=== PATIENT | female | born 1950 | race Caucasian/White ===

== ENCOUNTER 2019-10-22 23:17 | Observation (INO) | payer OTHER ==
--- NOTE | 2019-10-22 23:19 | PDOC ---
History of Present Illness - General Chief Complaint: Chest Pain Stated Complaint: CHEST PAIN Time Seen by Provider: 10/22/19 23:18 History Source: Patient Exam Limitations: No Limitations - History of Present Illness Initial Comments: 10/22/19 23:26 CHest pain and SOB began prior to arrival. Pt took 4 asa and she took a neb treatment, She feels better She is anxious. Past History - Travel Traveled outside of the country in the last 30 days: No - Past Medical History Allergies/Adverse Reactions: Allergies Allergy/AdvReac Type Severity Reaction Status Date / Time MARILEE Inhibitors Allergy Verified 10/22/19 23:20 tetracycline Allergy Verified 10/22/19 23:20 Home Medications: Ambulatory Orders Albuterol Sulfate Inhaler - [Ventolin Hfa Inhaler -] 1 - 2 inh PO QID 10/22/19 Amlodipine Besylate 10 mg PO DAILY 10/22/19 Atenolol [Tenormin] 25 mg PO DAILY 10/22/19 Cilostazol 100 mg PO BID 10/22/19 Furosemide [Lasix] 20 mg PO DAILY 10/22/19 Spironolactone 25 mg PO DAILY 10/22/19 HTN: Yes Hypercholesterolemia: Yes Review of Systems - Review of Systems Able to Perform ROS?: No Is the patient limited Japanese proficient: No Constitutional: Yes: Loss of Appetite HEENTM: No: Symptoms Reported, See HPI, Eye Pain, Blurred Vision, Tearing, Recent change in vision, Double Vision, Cataracts, Ear Pain, Ocular Prothesis, Ear Discharge, Nose Pain, Nose Congestion, Tinnitus, Nose Bleeding, Hearing Loss , Throat Pain, Throat Swelling, Mouth Pain, Dental Problems, Difficulty Swallowing, Mouth Swelling, Other Respiratory: Yes: Shortness of Breath. No: Symptoms reported, See HPI, Cough, Orthopnea, SOB with Exertion, SOB at Rest, Stridor, Wheezing, Productive cough, Hemoptysis, Other Cardiac (ROS): Yes: Chest Pain. No: Symptoms Reported, See HPI, Edema, Irregular Heart Rate, Lightheadedness, Palpitations, Syncope, Chest Tightness, Other ABD/GI: No: Symptoms Reported, See HPI, Abdominal Distended, Abd. Pain w/ defecation, Blood Streaked Bowels, Constipated, Diarrhea, Difficulty Swallowing , Nausea, Poor Appetite, Poor Fluid Intake, Rectal Bleeding, Vomiting, Indigestion, Abdominal cramping, Tarry Stools, Other Musculoskeletal: No: Symptoms Reported, See HPI, Back Pain, Gout, Joint Pain, Joint Swelling, Muscle Pain, Muscle Weakness, Neck Pain, Joint Stiffness, Other Integumentary: No: Symptoms Reported, See HPI, Bruising, Change in Color, Change in Hair/Nails, Dryness, Erythema, Flushing, Lesions, Lumps, Pallor, Pruritus, Rash, Sweating, Other Neurological: No: Symptoms reported, See HPI, Headache, Numbness, Paresthesia, Pre-Existing Deficit, Seizure, Tingling, Tremors, Weakness, Unsteady Gait, Ataxia, Dizziness, Other *Physical Exam - Physical Exam General Appearance: Yes: Nourished, Appropriately Dressed, Mild Distress HEENT: positive: EOMI, REINA, Normal ENT Inspection, Normal Voice, Symmetrical, TMs Normal, Pharynx Normal Neck: positive: Tender, Normal Thyroid, Supple Respiratory/Chest: positive: Lungs Clear, Normal Breath Sounds. negative: Respiratory Distress Cardiovascular: positive: Regular Rhythm, Regular Rate, S1, S2 Gastrointestinal/Abdominal: positive: Normal Bowel Sounds, Flat, Soft Musculoskeletal: positive: Normal Inspection. negative: CVA Tenderness Extremity: positive: Normal Capillary Refill, Normal Inspection, Normal Range of Motion Integumentary: positive: Normal Color, Dry, Warm, Cold Neurologic: positive: instructor pilot II-XII NML intact, Fully Oriented, Alert, Normal Mood/ Affect, Normal Response, Motor Strength 5/5 Heart Score/ECG Review - History History: Slightly suspicious - Electrocardiogram EKG: Normal - Age Age: >/= 65 - Risk Factors Risk Factors Heart Score: Yes Hx Hypercholesterolemia, Yes Hx Hypertension, Yes Hx Obesity Based on the list above the patient has:: >/=3 risk factors or Hx atherosclerotic disease - Troponin Troponin: </= normal limit - Score Heart Score - Total: 4 - ECG Intrepretation Rhythm: Regular Rhythm Comment:: 10/23/19 00:01 ?AFIB? I question some of the P waves on the EKG - [place]: Normal - ST and T Early Repolarization: No Non Specific ST-T Wave changes: No Flattened T Waves: No Prolonged Q-T Interval: No - ECG Impressions Normal ECG: Yes Non-specific ST Elevation: No Ischemic Changes: No Bradycardia: No Torsades ana Pointes: No WPW: No ED Treatment Course - LABORATORY CBC & Chemistry Diagram: 10/22/19 23:25 10/22/19 23:25 - RADIOLOGY Radiology Studies Ordered: Category Date Time Status CHEST PA & LAT [RAD] Stat Radiology 10/22/19 23:18 Ordered Medical Decision Making - Medical Decision Making 10/22/19 23:58 Pt is calmer in the ER and her BP came down to 129/62 CXR normal; increased markings in the right hilar area Pt has normal labs and card enzymes normal exam No pitting edema She will be admitted for CO and SOB 10/23/19 00:00 BUN/Cr prerenal picture; other labs normal Pt will be admitted to tele obs. 10/23/19 01:31 BNP 1071; likely early CHF Pt admitted to the hospitalist team Discharge - Discharge Information Problems reviewed: Yes Clinical Impression/Diagnosis: Chest pain, Dyspnea Condition: Stable - Admission Yes - Follow up/Referral - Patient Discharge Instructions - Post Discharge Activity
[2019-10-22 23:40] LABS: INR 1.05 (0.82-1.09); PROTHROMBIN TIME (PATIENT) 11.7 SEC (10.2-13.0)
[2019-10-22 23:42] LABS: BASO % 0.7 % (0-2.0); EOS % 4.6 % (0-4.5); HEMATOCRIT 42.4 % (32.4-45.2); HEMOGLOBIN 14.1 GM/dl (10.7-15.3); LYMPH % 31.6 % (8-40); MCH 29.3 pg (25.7-33.7); MCHC 33.3 g/dl (32.0-36.0); MEAN PLT VOLUME 8.2 fl (7.5-11.1); MONO % 11.8 % (3.8-10.2); NEUT % 51.3 % (42.8-82.8); PLATELET COUNT 329 K/MM3 (134-434); RBC 4.82 M/mm3 (3.60-5.2); RDW 13.2 % (11.6-15.6); WHITE BLOOD COUNT 6.7 K/mm3 (4.0-10.8)
[2019-10-22 23:45] LABS: ALBUMIN 4.3 g/dl (3.4-5.0); BILIRUBIN,TOTAL 0.4 mg/dl (0.2-1); CALCIUM 9.4 mg/dl (8.5-10); CREATININE 0.9 mg/dl (0.55-1.3); POTASSIUM 3.5 mmol/L (3.5-5.1); TOT PROT 7.3 g/dl (6.4-8.2)
[2019-10-23 01:42] VITALS: BMI 31.5
[2019-10-23] MEDS ORDERED: POTASSIUM CHLORIDE TABS 20 MEQ TABLET.ER (FP) PO ONE (03:01)
[2019-10-23] MEDS ORDERED: ASPIRIN 325 MG TABLET PO ONE (03:23)
[2019-10-23 05:09] LABS: MAGNESIUM 2.1 mg/dL (1.8-2.4); PHOSPHOROUS 3.7 mg/dL (2.5-4.9)
[2019-10-23] MEDS ORDERED: HEPARIN NA (PORCINE) 5,000 UNITS/ML 1ML VIAL SQ SCH (06:00)
--- NOTE | 2019-10-23 09:42 | HP ---
Admitting History and Physical - Primary Care Physician PCP: Anish Montelongo - Admission Chief Complaint: Chest Pain, Shortness of Breath History of Present Illness: 69 year old female with pmh significant for HTN, COPD, HLD, CAD, s/p 4 stents ( 1 in kidney, 1 in the heart, 2 in illiac arteries). Presented to the ER with complaints of chest pain and shortness of breath. Patient states she was at her daughter's house who lives 5 min from [facility], and she started feeling SOB and felt a burning and aching pain in her chest. She used her rescue inhaler with no relief. PT states became nervous and took 4 ASA, and her daughter brought her to the ER. Patient is under the care of Chief Information Security Officer, Dr. Campos Bolivar. History Source: Patient Limitations to Obtaining History: No Limitations - Past Medical History Cardiovascular: Yes: HTN, Hyperlipdemia, [place] Pulmonary: Yes: COPD ...: No - Past Surgical History Past Surgical History: Yes: Cholecystectomy, Hysterectomy, Stent (1 heart stent ; 1 kidney stent, 2 illiac stents) Additional Past Surgical History: Left total knee replacement - Smoking History Smoking history: Former smoker Have you smoked in the past 12 months: No If you are a former smoker, when did you quit?: 17 years ago - Alcohol/Substance Use Hx Alcohol Use: No History of Substance Use: reports: None - Social History Usual Living Arrangement: Yes: Alone Occupation: Retired [place] History of Recent Travel: No Home Medications - Allergies Allergies/Adverse Reactions: Allergies Allergy/AdvReac Type Severity Reaction Status Date / Time MARILEE Inhibitors Allergy Mouth Edema Verified 10/23/19 09:41 Penicillins Allergy Rash Verified 10/23/19 09:41 tetracycline Allergy Verified 10/22/19 23:20 - Home Medications Home Medications: Ambulatory Orders Albuterol Sulfate Inhaler - [Ventolin HFA Inhaler -] 1 - 2 inh PO QID 10/22/19 Amlodipine Besylate 10 mg PO HS 10/22/19 Atenolol [Tenormin] 25 mg PO HS 10/22/19 Cilostazol 100 mg PO BID 10/22/19 Atorvastatin Calcium [Lipitor] 20 mg PO HS 10/23/19 Spironolact/Hydrochlorothiazid [Aldactazide 25-25 Tablet] 1 each PO HS 10/23/19 Umeclidinium [place] [Incruse Ellipta] 62.5 mcg IH BID 10/23/19 Family Medical History Family Hx Cardiac Disorders: Mother, Father Family Hx Diabetes: Father, Brother Review of Systems - Review of Systems Constitutional: reports: No Symptoms Eyes: reports: No Symptoms HENT: reports: No Symptoms Neck: reports: No Symptoms Cardiovascular: reports: No Symptoms Respiratory: reports: Cough (Occasionally will have a cough in the AM, which is normal for her), Other (Denies any shortness of breath) Gastrointestinal: reports: No Symptoms Genitourinary: reports: No Symptoms Musculoskeletal: reports: No Symptoms, Joint Pain Integumentary: reports: No Symptoms Neurological: reports: No Symptoms Endocrine: reports: No Symptoms Hematology/Lymphatic: reports: No Symptoms Psychiatric: reports: No Symptoms Physical Examination Vital Signs: Vital Signs Temperature 98.8 F 10/23/19 04:11 Pulse Rate 69 10/23/19 04:11 Respiratory Rate 18 10/23/19 04:11 Blood Pressure 145/59 L 10/23/19 04:11 O2 Sat by Pulse Oximetry (%) 94 L 10/23/19 04:11 Labs: CBC, BMP 10/22/19 23:25 10/22/19 23:25 Imaging - Results Chest X-ray: Report Reviewed EKG: Report Reviewed (ECHO- Reviewed by Chief Information Security Officer) Assessment/Plan 69 year old female with pmh significant for HTN, COPD, HLD, CAD, s/p 4 stents ( 1 in kidney, 1 in the heart, 2 in illiac arteries). Presented to the ER with complaints of chest pain and shortness of breath. (1) Chest pain EKG: sinus, PVCs, lateral TWI tele: sinus, PVCs CXR: no congestion echo 09/2019 nl LV/RV function, tr MR, tr TR - trop indeterminate range, flat trend <0.03, 0.06, 0.06 -Cardiology consulted- Dr. Susan Garcia - EKG with lateral TWI with no prior for comparison - echo unremarkable (2) Hypertension Assessment/Plan: Continue HM dose Atenolol Code(s): I10 - ESSENTIAL (PRIMARY) HYPERTENSION (3) CAD (coronary artery disease) - cont aspirin, statin, bb, cilostazol Code(s): I25.10 - ATHSCL HEART DISEASE OF [place] CORONARY ARTERY W/O ANG PCTRS (4) COPD (chronic obstructive pulmonary disease) with emphysema -Incuse Ellipta -Ventolin Code(s): J43.9 - EMPHYSEMA, UNSPECIFIED (5) Dyspnea -2L [place] Code(s): R06.00 - DYSPNEA, UNSPECIFIED Visit type - Emergency Visit Emergency Visit: Yes ED Registration Date: 10/23/19 Care time: The patient presented to the Emergency Department on the above date and was hospitalized for further evaluation of their emergent condition. - New Patient This patient is new to me today: Yes Date on this admission: 10/23/19 - Critical Care Critical Care patient: No
[2019-10-23] MEDS ORDERED: FUROSEMIDE 20 MG TABLET (FP) PO SCH (10:00)
[2019-10-23] MEDS ORDERED: ASPIRIN COATED 81 MG TABLET.EC PO SCH ×2 (10:00→21:00)
[2019-10-23] MEDS ORDERED: ATENOLOL 25 MG TABLET (FP) PO SCH ×4 (10:00→21:00)
[2019-10-23] MEDS ORDERED: FUROSEMIDE 40 MG/4 ML INJECTABLE VIAL IVPUSH SCH (10:00)
--- NOTE | 2019-10-23 10:30 | EKG ---
Test Reason : Blood Pressure : / mmHG Vent. Rate : 088 BPM Atrial Rate : 088 BPM P-R Int : 140 ms QRS Dur : 096 ms QT Int : 412 ms P-R-T Axes : 016 -18 114 degrees QTc Int : 498 ms SINUS RHYTHM WITH OCCASIONAL PREMATURE VENTRICULAR COMPLEXES ABNORMAL ECG NO PREVIOUS ECGS AVAILABLE Confirmed by MUMTAZ HUYNH, ROSA ([id number]) on 10/23/2019 10:30:41 AM Referred By: MD AGUILAR Confirmed By:ROSA PANDYA MD
[2019-10-23] MEDS: SPIRONOLACTONE 25 MG TABLET (FP) PO SCH (10:53)
[2019-10-23] MEDS: amLODIPine BESYLATE 10 MG TABLET (FP) PO SCH (10:53)
[2019-10-23] MEDS ORDERED: SPIRONOLACTONE 25 MG TABLET (FP) PO SCH ×2 (11:15→11:59)
[2019-10-23] MEDS ORDERED: amLODIPine BESYLATE 10 MG TABLET (FP) PO SCH ×2 (11:15→11:59)
--- NOTE | 2019-10-23 11:34 | ECHO ---
Name: SELENA, KHLOE Exam:Adult Echocardiogram Study Date: 10/23/2019 08:26 AM Age: 69 yrs Reason For Study: SOB Height: 63 in Weight: 172 lb BSA: 1.8 m2 MMode/2D Measurements & Calculations IVSd: 1.3 cm Ao root diam: 2.5 cm LVIDd: 4.5 cm LA dimension: 3.4 cm LVIDs: 2.9 cm LVPWd: 0.84 cm EDV(Teich): 90.2 ml LVOT diam: 2.0 cm ESV(Teich): 31.9 ml Doppler Measurements & Calculations MV E max ninfa: 94.2 cm/sec MV A max ninfa: 90.6 cm/sec MV dec slope: 554.9 cm/sec2 MV E/A: 1.0 Ao V2 max: 134.8 cm/sec LV V1 max P.2 mmHg Ao max P.3 mmHg LV V1 max: 74.4 cm/sec NOAH(V,D): 1.7 cm2 MR max ninfa: 371.9 cm/sec TR max ninfa: 206.7 cm/sec MR max P.3 mmHg TR max P.2 mmHg PA V2 max: 87.7 cm/sec PI end-d ninfa: 115.1 cm/sec PA max P.1 mmHg Procedure A complete two-dimensional transthoracic echocardiogram was performed (2D, M-mode, Doppler and color flow Doppler). Left Ventricle The left ventricular size, thickness and function are normal. The left ventricular ejection fraction is normal. Ejection Fraction = 55-60%. The left ventricular wall motion is normal. Right Ventricle The right ventricle is normal in size and function. Atria Normal left and right atrial size and function. Mitral Valve There is trace mitral regurgitation. Tricuspid Valve There is trace tricuspid regurgitation. There was insufficient TR detected to calculate RV systolic p ressure. Aortic Valve The aortic valve is trileaflet. No hemodynamically significant valvular aortic stenosis. No aortic regurgitation is present. Pulmonic Valve Trace pulmonic valvular regurgitation. Great Vessels The aortic root is normal size. Pericardium/Pleura There is no pericardial effusion. Interpretation Summary The left ventricular size, thickness and function are normal The right ventricle is normal in size and function. There is trace mitral regurgitation. There is trace tricuspid regurgitation. Trace pulmonic valvular regurgitation. MD Keaton Arzola 10/23/2019 11:34 AM
[2019-10-23] MEDS ORDERED: CILOSTAZOL 100 MG TABLET PO SCH (12:15)
[2019-10-23] MEDS ORDERED: PT OWN MED DRAWER 7, Y5N ONE (12:56)
[2019-10-23 14:46] VITALS: BP 141/56; PULSE 70; TEMP 97.9
--- NOTE | 2019-10-23 15:09 | DS ---
Physical Exam: SUBJECTIVE: Patient seen and examined OBJECTIVE: Vital Signs Period Temp Pulse Resp BP Sys/Dee Pulse Ox Last 24 Hr 97.5 F-98.8 F 68-88 17-20 129-189/56-102 94-100 PHYSICAL EXAM GENERAL: The patient is awake, alert, and fully oriented, in no acute distress. HEAD: Normal with no signs of trauma. EYES: PERRL, extraocular movements intact, sclera anicteric, conjunctiva clear. ENT: Ears normal, nares patent, oropharynx clear without exudates, moist mucous membranes. NECK: Trachea midline, full range of motion, supple. LUNGS: Breath sounds equal, clear to auscultation bilaterally, no wheezes, no crackles, no accessory muscle use. HEART: Regular rate and rhythm, S1, S2 without murmur, rub or gallop. ABDOMEN: Soft, nontender, nondistended, normoactive bowel sounds, no guarding, no rebound, no hepatosplenomegaly, no masses. EXTREMITIES: 2+ pulses, warm, well-perfused, no edema. NEUROLOGICAL: Cranial nerves II through XII grossly intact. Normal speech, gait not observed. PSYCH: Normal mood, normal affect. SKIN: Warm, dry, normal turgor, no rashes or lesions noted. LABS Laboratory Results - last 24 hr 10/22/19 10/22/19 10/22/19 23:25 23:25 23:25 WBC 6.7 RBC 4.82 Hgb 14.1 Hct 42.4 MCV 88.0 MCH 29.3 MCHC 33.3 RDW 13.2 Plt Count 329 MPV 8.2 Absolute Neuts (auto) 3.5 Neutrophils % 51.3 Lymphocytes % 31.6 Monocytes % 11.8 H Eosinophils % 4.6 H Basophils % 0.7 PT with INR INR Sodium 139 Potassium 3.5 Chloride 104 Carbon Dioxide 22 Anion Gap 13 BUN 28.0 H Creatinine 0.9 Est GFR (CKD-EPI)AfAm 74.56 Est GFR (CKD-EPI)NonAf 64.33 Random Glucose 127 H Calcium 9.4 Phosphorus Magnesium Total Bilirubin 0.4 AST 23 ALT 19 Alkaline Phosphatase 104 Creatine Kinase 113 CK-MB (CK-2) Troponin I < 0.03 B-Natriuretic Peptide Total Protein 7.3 Albumin 4.3 10/22/19 10/22/19 10/23/19 23:25 23:25 03:30 WBC RBC Hgb Hct MCV MCH MCHC RDW Plt Count MPV Absolute Neuts (auto) Neutrophils % Lymphocytes % Monocytes % Eosinophils % Basophils % PT with INR 11.7 INR 1.05 Sodium Potassium Chloride Carbon Dioxide Anion Gap BUN Creatinine Est GFR (CKD-EPI)AfAm Est GFR (CKD-EPI)NonAf Random Glucose Calcium Phosphorus 3.7 Magnesium 2.1 Total Bilirubin AST ALT Alkaline Phosphatase Creatine Kinase CK-MB (CK-2) 1.9 Troponin I 0.06 H B-Natriuretic Peptide 1071.8 H Total Protein Albumin 10/23/19 08:45 WBC RBC Hgb Hct MCV MCH MCHC RDW Plt Count MPV Absolute Neuts (auto) Neutrophils % Lymphocytes % Monocytes % Eosinophils % Basophils % PT with INR INR Sodium Potassium Chloride Carbon Dioxide Anion Gap BUN Creatinine Est GFR (CKD-EPI)AfAm Est GFR (CKD-EPI)NonAf Random Glucose Calcium Phosphorus Magnesium Total Bilirubin AST ALT Alkaline Phosphatase Creatine Kinase CK-MB (CK-2) Troponin I 0.06 H B-Natriuretic Peptide Total Protein Albumin HOSPITAL COURSE: Date of Admission:10/23/19 Date of Discharge: 10/23/19 69 year old female with pmh significant for HTN, COPD, HLD, CAD, s/p 4 stents ( 1 in kidney, 1 in the heart, 2 in illiac arteries). Presented to the ER with complaints of chest pain and shortness of breath. Patient states she was at her daughter's house who lives 5 min from [facility], and she started feeling SOB and felt a burning and aching pain in her chest. She used her rescue inhaler with no relief. PT states became nervous and took 4 ASA, and her daughter brought her to the ER. Patient is under the care of Truck Jumper, Dr. Campos Bolivar. (1) Chest pain EKG: sinus, PVCs, lateral TWI tele: sinus, PVCs CXR: no congestion echo 09/2019 nl LV/RV function, tr MR, tr TR - trop indeterminate range, flat trend <0.03, 0.06, 0.06 -Cardiology consulted and seen by Dr. Susan Garcia - EKG with lateral TWI with no prior for comparison - echo unremarkable - history more consistent with GERD, however given mild trop elevation, abnl EKG recommend stress test - patient refuses - she will call her warp worker to arrange as outpatient (2) Hypertension Assessment/Plan: Continue HM dose Atenolol Code(s): I10 - ESSENTIAL (PRIMARY) HYPERTENSION (3) CAD (coronary artery disease) - cont aspirin, statin, bb, cilostazol Code(s): I25.10 - ATHSCL HEART DISEASE OF [place] CORONARY ARTERY W/O ANG PCTRS (4) COPD (chronic obstructive pulmonary disease) with emphysema -Incuse Ellipta -Ventolin Code(s): J43.9 - EMPHYSEMA, UNSPECIFIED (5) Dyspnea Code(s): R06.00 - DYSPNEA, UNSPECIFIED Minutes to complete discharge: 35 Discharge Summary Problems reviewed: Yes Reason For Visit: CHEST PAIN/DYSPENA. Current Active Problems CAD (coronary artery disease) (Acute) COPD (chronic obstructive pulmonary disease) with emphysema (Acute) Chest pain (Acute) Dyspnea (Acute) Hypertension (Acute) Condition: Improved - Instructions Diet, Activity, Other Instructions: You were treated for chest pain and shortness of breath. Chest Xray was unremarkable EKG was normal sinus with PVCs Serial Troponin 0/03. 0.06. 0.06\ You were seen by the warp worker Dr. Susan Garcia \ Follow up with your warp worker Resume your normal activity and diet. Resume your regular medications Disposition: HOME - Home Medications Comprehensive Discharge Medication List: Ambulatory Orders Albuterol Sulfate Inhaler - [Ventolin Hfa Inhaler -] 1 - 2 inh PO QID 10/22/19 Amlodipine Besylate 10 mg PO HS 10/22/19 Atenolol [Tenormin] 25 mg PO HS 10/22/19 Cilostazol 100 mg PO BID 10/22/19 Atorvastatin Calcium [Lipitor] 20 mg PO HS 10/23/19 Spironolact/Hydrochlorothiazid [Aldactazide 25-25 Tablet] 1 each PO HS 10/23/19 Umeclidinium [place] [Incruse Ellipta] 62.5 mcg IH BID 10/23/19 Problem List - Problems (1) Chest pain Code(s): R07.9 - CHEST PAIN, UNSPECIFIED (2) Hypertension Code(s): I10 - ESSENTIAL (PRIMARY) HYPERTENSION (3) CAD (coronary artery disease) Code(s): I25.10 - ATHSCL HEART DISEASE OF [place] CORONARY ARTERY W/O ANG PCTRS (4) COPD (chronic obstructive pulmonary disease) with emphysema Code(s): J43.9 - EMPHYSEMA, UNSPECIFIED (5) Dyspnea Code(s): R06.00 - DYSPNEA, UNSPECIFIED This patient is new to me today: Yes Date on this admission: 10/23/19 Emergency Visit: Yes ED Registration Date: 10/23/19 Care time: The patient presented to the Emergency Department on the above date and was hospitalized for further evaluation of their emergent condition. Critical Care patient: No - Discharge Referral Referred to [facility] Med P.C[facility] No
--- NOTE | 2019-10-23 15:39 | CON.CARD ---
Consult Consult Specialty:: Cardiology Referred by:: Medicine Reason for Consultation:: chest pain - History of Present Illness Chief Complaint: chest pain History of Present Illness: 69F h/o HTN, CAD s/p [place] in 1998, PAD with stents in kidney, iliac artery x 2 p/ w chest pain, dyspnea. Was eating a lot yesterday, drank alcohol more than usual and at night after lying down felt pain in center of chest, felt like burning. Not radiating. Inhaler didn't help, took baby asa x 4 and came to ER. Pain lasted a few hours, now resolved. Sees household coordinator Dr. Campos Bolivar. - Past Medical History Cardio/Vascular: Yes: HTN, Hyperlipdemia, [place] Pulmonary: Yes: COPD ...: No - Past Surgical History Past Surgical History: Yes: Cholecystectomy, Hysterectomy, Stent (1 heart stent ; 1 kidney stent, 2 illiac stents) - Alcohol/Substance Use Hx Alcohol Use: Yes - Smoking History Smoking history: Former smoker Have you smoked in the past 12 months: No If you are a former smoker, when did you quit?: 17 years ago Home Medications - Allergies Allergies/Adverse Reactions: Allergies Allergy/AdvReac Type Severity Reaction Status Date / Time MARILEE Inhibitors Allergy Mouth Edema Verified 10/23/19 09:41 Penicillins Allergy Rash Verified 10/23/19 09:41 tetracycline Allergy Verified 10/22/19 23:20 - Home Medications Home Medications: Ambulatory Orders Albuterol Sulfate Inhaler - [Ventolin HFA Inhaler -] 1 - 2 inh PO QID 10/22/19 Amlodipine Besylate 10 mg PO HS 10/22/19 Atenolol [Tenormin] 25 mg PO HS 10/22/19 Cilostazol 100 mg PO BID 10/22/19 Atorvastatin Calcium [Lipitor] 20 mg PO HS 10/23/19 Spironolact/Hydrochlorothiazid [Aldactazide 25-25 Tablet] 1 each PO HS 10/23/19 Umeclidinium [place] [Incruse Ellipta] 62.5 mcg IH BID 10/23/19 Family Medical History Family History: Unremarkable Review of Systems - Review of Systems Constitutional: reports: No Symptoms Eyes: reports: No Symptoms HENT: reports: No Symptoms Neck: reports: No Symptoms Cardiovascular: reports: No Symptoms Respiratory: reports: No Symptoms Gastrointestinal: reports: No Symptoms Genitourinary: reports: No Symptoms Musculoskeletal: reports: No Symptoms Integumentary: reports: No Symptoms Neurological: reports: No Symptoms Endocrine: reports: No Symptoms Hematology/Lymphatic: reports: No Symptoms Psychiatric: reports: No Symptoms Vital Signs: Vital Signs Temperature 97.9 F 10/23/19 14:00 Pulse Rate 70 10/23/19 14:00 Respiratory Rate 17 10/23/19 14:00 Blood Pressure 141/56 L 10/23/19 14:00 O2 Sat by Pulse Oximetry (%) 97 10/23/19 14:00 Constitutional: Yes: No Distress, Calm Eyes: Yes: Conjunctiva Clear, EOM Intact HENT: Yes: Atraumatic, Normocephalic Neck: Yes: Supple, Trachea Midline Respiratory: Yes: Regular, CTA Bilaterally Gastrointestinal: Yes: Normal Bowel Sounds, Soft Cardiovascular: Yes: Regular Rate and Rhythm JVD: No Carotid Bruit: No Heart Sounds: Yes: S1, S2 Extremities: No: Cold Edema: No Integumentary: No: Jaundice Neurological: Yes: Alert, Oriented Psychiatric: No: Agitated - Other Data Labs, Other Data: CBC, BMP 10/22/19 23:25 10/22/19 23:25 INR, PTT INR 1.05 (0.82-1.09) 10/22/19 23:25 Troponin, BNP 10/22/19 10/22/19 10/23/19 23:25 23:25 03:30 Troponin I < 0.03 0.06 H B-Natriuretic Peptide 1071.8 H 10/23/19 08:45 Troponin I 0.06 H B-Natriuretic Peptide Troponin, BNP 10/22/19 10/22/19 10/23/19 23:25 23:25 03:30 Troponin I < 0.03 0.06 H B-Natriuretic Peptide 1071.8 H 10/23/19 08:45 Troponin I 0.06 H B-Natriuretic Peptide Assessment/Plan EKG: sinus, PVCs, lateral TWI tele: sinus, PVCs CXR: no congestion echo 09/2019 nl LV/RV function, tr MR, tr TR Chest pain - trop indeterminate range, flat trend - EKG with lateral TWI with no prior for comparision - echo unremarkable - history more consistent with GERD, however given mild trop elevation, abnl EKG recommend stress test - patient refuses - she will call her household coordinator to arrange as outpatient HTN - cont home meds CAD PAD - cont aspirin, statin, bb, cilostazol COPD - manage per primary
--- NOTE | 2019-10-24 06:47 | EKG ---
Test Reason : Blood Pressure : / mmHG Vent. Rate : 064 BPM Atrial Rate : 064 BPM P-R Int : 138 ms QRS Dur : 096 ms QT Int : 454 ms P-R-T Axes : 017 -19 023 degrees QTc Int : 468 ms SINUS RHYTHM WITH OCCASIONAL PREMATURE VENTRICULAR COMPLEXES INFERIOR INFARCT , AGE UNDETERMINED ANTERIOR INFARCT , AGE UNDETERMINED T WAVE ABNORMALITY, CONSIDER LATERAL ISCHEMIA ABNORMAL ECG WHEN COMPARED WITH ECG OF 22-OCT-2019 23:10, T WAVE INVERSION NOW EVIDENT IN INFERIOR LEADS T WAVE INVERSION LESS EVIDENT IN LATERAL LEADS Confirmed by MUMTAZ HUYNH, ROSA ([id number]) on 10/23/2019 10:30:47 AM Referred By: SWETA SIDHU Confirmed By:ROSA PANDYA MD
== END 2019-10-23 16:09 | disposition home or self-care (01) ==
LOC: FER 23:17 → FM/S 10-23 00:34 → INTOOBSV 10-23 00:34 → UNDOADMOB 10-23 00:34 → FM/S 10-23 03:11
PROVIDERS: ADMIT Internal Medicine; ATTEND Nurse Practitioner Acute Care
PROC: 3E033GC Introduction of Other Therapeutic Substance into Peripheral Vein, Percutaneous Approach (ICD-10-PCS; principal; 2019-10-23)
PROC: 3E013GC Introduction of Other Therapeutic Substance into Subcutaneous Tissue, Percutaneous Approach (ICD-10-PCS; 2019-10-23)
DX: R07.89 Other chest pain (principal); I10 Essential (primary) hypertension; E78.5 Hyperlipidemia, unspecified; J44.9 Chronic obstructive pulmonary disease, unspecified; I25.10 Atherosclerotic heart disease of native coronary artery without angina pectoris; I25.2 Old myocardial infarction; R06.00 Dyspnea, unspecified; E66.9 Obesity, unspecified; Z68.31 Body mass index [BMI] 31.0-31.9, adult; Z95.5 Presence of coronary angioplasty implant and graft; Z96.0 Presence of urogenital implants; Z87.891 Personal history of nicotine dependence; Z88.0 Allergy status to penicillin; Z88.8 Allergy status to other drugs, medicaments and biological substances
CPT/HCPCS: 36415; 71046-TC-FY; 80053; 82550; 82553; 83735; 83880; 84100; 84484; 85025; 85610; 93005; 93306-TC; 96372; 96374; 99285-25; G0378; J1644